=== PATIENT | female | born 1960 | race Caucasian/White ===

== ENCOUNTER 2024-02-21 09:54 | Emergency (ER) | payer OTHER ==
[~2024-02-21] VITALS: Ht 170.2 cm; Wt 51.3 kg
[~2024-02-21 09:54] MED LIST: IBUP600 PO; Percocet 5-3251 EACH PO; Zofran Odt4 MG SL
[2024-02-21 11:09] LABS: BASOPHILS ABSOLUTE AUTO 0.05 K/mm3 (0.00-0.23); BASOPHILS PERCENT AUTO 1 % (0-2); EOSINOPHILS ABSOLUTE AUTO 0.02 K/mm3 (0.00-0.68); EOSINOPHILS PERCENT AUTO 0 % (0-6); Hematocrit 39.2 % (33.0-51.0); Hemoglobin 13.1 g/dL (11.5-16.0); IMMATURE GRAN ABSOLUTE AUTO 0.02 K/mm3 (0.00-0.10); IMMATURE GRAN PERCENT AUTO 0 % (0-1); LYMPHOCYTES ABSOLUTE AUTO 1.02 K/mm3 (0.84-5.20); LYMPHOCYTES PERCENT AUTO 10 % (21-46); MONOCYTES PERCENT AUTO 5 % (4-13); Mean Corpuscular HGB 29.7 pg (26.0-34.0); Mean Corpuscular HGB Conc 33.4 g/dL (31.5-36.5); Mean Corpuscular Volume 89 fL (80-100); Mean Platelet Volume 9.7 fL (9.1-12.4); NEUTROPHILS ABSOLUTE AUTO 8.74 K/mm3 (1.96-9.15); NEUTROPHILS PERCENT AUTO 84 % (41-73); Platelet Count 167 K/mm3 (150-400); RDW Standard Deviation 42.6 fL (35.1-46.3); Red Blood Cell Count 4.41 M/mm3 (3.80-5.20); White Blood Cell Count 10.35 K/mm3 (4.00-11.30)
[2024-02-21 11:28] LABS: Albumin, Blood 3.9 g/dL (3.4-5.0); Albumin/Globulin Ratio 1.2 (0.8-1.8); Bilirubin, Total 0.5 mg/dL (0.1-1.0); Bun/Creatinine Ratio 14.4 (12.0-20.0); Calcium, Blood 9.3 mg/dL (8.5-10.1); Creatinine, Blood 0.63 mg/dL (0.40-1.00); Globulin, Blood 3.3 g/dL (2.2-4.0); Potassium, Blood 3.6 mmol/L (3.5-5.5); Total Protein, Blood 7.2 g/dL (6.4-8.2)
[2024-02-21 11:48] LABS: Source, Urine Clean Catch
[2024-02-21] MEDS ORDERED: FentaNYL Citrate 50 MCG/ML 2 ML Injection IV ONE (11:55)
[2024-02-21] MEDS ORDERED: Ondansetron HCl 2 MG / ML 2ML Vial IV ONE (11:55)
[2024-02-21] MEDS ORDERED: NS 1,000 ML IV SCH (11:55)
[2024-02-21 12:00] LABS: Appearance, Urine Clear (Clear); Bilirubin, Urine Neg (Neg); Blood, Urine 4+ (Neg); Color, Urine Yellow (P-Yellow); Glucose Qualitative, Urine Neg (Neg); Ketones, Urine 2+ (Neg); Leukocyte Esterase, Urine 1+ (Neg); Nitrite, Urine Neg (Neg); Protein, Urine 1+ (Neg); Specific Gravity, Urine 1.015 (1.003-1.022); Urobilinogen, Urine NORM (Normal); pH, Urine 6.5 (5.0-8.0)
[2024-02-21 12:39] LABS: Bacteria Few /hpf; Squamous Epithelial Cells Few /hpf (Few)
[2024-02-21] MEDS ORDERED: Tamsulosin HCl 0.4 MG Cap PO ONE (12:45)
[2024-02-21] MEDS ORDERED: Ketorolac Tromethamine 30mg Vial IV ONE (12:45)
[2024-02-21] MEDS ORDERED: Percocet 5-3251 EACH PO (13:05)
[2024-02-21] MEDS ORDERED: TAMS.4ER PO (13:05)
[2024-02-21] MEDS ORDERED: ONDA4ODT MM (13:05)
[2024-02-21 13:38] VITALS: BP 126/73
== END 2024-02-21 13:41 | disposition home or self-care (01) ==
LOC: ER 09:54
PROVIDERS: Physician Assistant
DX: N13.2 Hydronephrosis with renal and ureteral calculous obstruction (principal); Z88.5 Allergy status to narcotic agent
CPT/HCPCS: 74177; 80053; 81001; 83690; 85025; 87086; 96361; 96374-59; 96375; 99284-25; A9270; J1885; J2405; J3010; J7030; Q9967